=== PATIENT | female | born 1990 | race Caucasian/White ===

== ENCOUNTER 2020-04-14 12:38 | Emergency (ER) | payer MEDICAID, SELFPAY ==
--- NOTE | ~2020-04-14 | XR_ITS ---
EXAMINATION: XR forearm RT 2V DATE: 04/14/2020 13:04 INDICATION: Mid right ulnar pain post fall TECHNIQUE: AP an lateral views of the right forearm were obtained. COMPARISON: none FINDINGS: Alignment is normal. Thin linear lucency projecting across the radial aspect of the distal diaphysis of the right ulna consistent with nondisplaced fracture, potentially incomplete with no evident lucen cy along the ulnar sided cortex. No other fractures identified. Joint spaces are normal. No right elb ow joint effusion. Mild soft tissue swelling about the dorsal and ulnar side of the distal forearm. IMPRESSION: 1. Nondisplaced, potentially incomplete fracture at the distal right ulnar diaphysis. Reviewed, dictated and finalized at location B. [facility] [employer]ACTITION[facility] IMPRESSION: 1. Nondisplaced, potentially incomplete fracture at the distal right ulnar diap hysis.
[2020-04-14 12:50] VITALS: BP 119/78; PULSE 92; RESP 20; TEMP 36.6; O2SAT 99
--- NOTE | 2020-04-14 12:52 | ED.UPPEXIN ---
HPI - Extremity Injury (Upper) General Chief Complaint: Extremity Injury, Upper Stated Complaint: right forearm pain Time Seen by Provider: 04/14/20 12:52 Source: patient Mode of arrival: ambulatory Limitations: no limitations History of Present Illness HPI narrative: 29 year old female who presents to [facility] care with complaints of injury to her right forearm which occurred last night, Patient states that her grandmother passed unexpectedly yesterday and she drank too much alcohol last night, Patient states that she is not sure how she injured her right forearm, thinks she may of fell down her step or slipped outside. Patient has noted swelling and bruising to the ulnar aspect of her mid right forearm with point tenderness, full mobility of her fingers with strong right radial pulse, denies any tingling or numbness to her arm or fingers.Increase pain with rotation of her right wrist, states pain 7/10, stinging and aching, has not taken any OTC pain medication. Patient is right hand dominant. MD complaint: injury to: right and forearm Onset (ago): day(s) (1) Other injuries: none Handedness: right Place: home Severity: moderate Severity scale (1-10): 7 Relieving factors: rest Exacerbating factors: movement of extremity and other (palpation) Context: fall Associated symptoms: denies other symptoms Related Data Home Medications Medication Instructions Recorded Confirmed levonorgestrel [Mirena] 1 device INTRAUTERINE ONCE 04/14/20 04/14/20 Allergies Allergy/AdvReac Type Severity Reaction Status Date / Time No Known Drug Allergies Allergy Unknown Unknown Verified 04/14/20 13:01 Review of Systems Review of Systems: Narrative: CONSTITUTIONAL: Denies fever, chills, or sweats. EYES: Denies visual changes, redness, or discharge. ENT: Denies rhinorrhea, congestion, sore throat, or otalgia. CARDIOVASCULAR: Denies chest pain, palpitations, or edema. RESPIRATORY: Denies cough or dyspnea. GASTROINTESTINAL: Denies abdominal pain, nausea, vomiting, or diarrhea. GENITOURINARY: Denies dysuria or hematuria. SKIN: Denies rash or itching. MUSCULOSKELETAL: Denies back pain, positive for discomfort to her right forearm mid ulnar aspect, or myalgia. NEUROLOGIC: Denies headache, numbness, or weakness. PSYCHIATRIC: Positive history of anxiety or depression. states was on meds for bipolar in past has been off for 2 years with no problems All systems reviewed & are unremarkable except as noted in HPI and below PMFSH Past Medical History Medical History (Updated 04/15/20 @ 09:38 by Clair Hess NP) Anxiety and depression Bipolar 1 disorder Borderline personality disorder Fracture of right forearm Surgical History Surgical History (Updated 04/15/20 @ 09:23 by Clair Hess NP) No history of previous surgery Family History Family History (Updated 04/14/20 @ 13:41 by Clair Hess NP) Grandparent Heart disease Other Hypertension Multiple sclerosis Social History Social History (Updated 04/14/20 @ 13:42 by Clair Hess NP) Smoking status: Never smoker Alcohol intake: current Substance use: never Living arrangements: with family Gender identity (if verbalized by the patient): Female Comments At time of signature, agree with nursing past medical, surgical, social and family history. There is no relevant family history pertinent to the presenting complaint Exam Narrative: Exam Narrative: GENERAL: Well-appearing, well-nourished, and in mild acute distress. HEAD: Normocephalic, atraumatic. EYES: PERRLA and EOMI. ENT: Nares clear, no rhinorrhea or epistaxis. Mucous membranes moist. NECK: Supple.no lymphadenopathy CHEST: Clear to auscultation. No respiratory distress.SAO2 99% on room air HEART: Regular rate and rhythm. No murmur heard. Normal peripheral pulses. ABDOMEN: Soft, nontender, nondistended, normal active bowel sounds. EXTREMITIES: Normal range of motion. No edema with exception to right mid
== END 2020-04-14 14:00 | disposition home or self-care (01) ==
PROVIDERS: Emergency Provider Registered Nurse; PCP Pediatrics
DX: S52.691A Other fracture of lower end of right ulna, initial encounter for closed fracture (principal); X58.XXXA Exposure to other specified factors, initial encounter
CPT/HCPCS: 29125; 73090; 99204; A4565; G0463